=== PATIENT | female | born 1945 | race Caucasian/White ===

== ENCOUNTER 2018-10-25 01:32 | Emergency (ER) | payer OTHER ==
--- OUTSIDE RECORDS SUMMARY | 2018-10-25 01:35 | XMS REPORT ---
:1945 Author Organization eClinicalWorks Care Team Providers Name Role Phone SalWade Provider Role Unavailable Allergies No Known Allergies Problems Problem Type Condition Code Onset Dates Condition Status Problem Pain, joint, knee, right M25.561 Active Problem Pain in right lower leg M79.661 Active Problem Pain, joint, knee, left M25.562 Active Problem Pain in left lower leg M79.662 Active Problem Right sided sciatica M54.31 Active Medications Medication Code System Code Instructions Start End Date Status Dosage Date Valium [facility] 17919476787 2 MG Orally Once Apr 02, Active 1 PO 30 a day 2018 MINUTES MAY TAKE 2 IF NEEDED Results No Known Results Summary Purpose eClinicalWorks Submission
--- OUTSIDE RECORDS SUMMARY | 2018-10-25 01:35 | XMS REPORT ---
:1945 Author Organization eClinicalWorks Care Team Providers Name Role Phone Wade Sal Provider Role Unavailable Allergies, Adverse Reactions, Alerts Substance Reaction Event Type N.K.D.A. Info Not Available Non Drug Allergy Problems Problem Type Condition Code Onset Dates Condition Status Assessment Pain, joint, knee, right M25.561 Active Assessment Pain in right lower leg M79.661 Active Assessment Right sided sciatica M54.31 Active Assessment Pain, joint, knee, left M25.562 Active Problem Pain, joint, knee, right M25.561 Active Problem Pain in right lower leg M79.661 Active Problem Pain, joint, knee, left M25.562 Active Assessment Pain in left lower leg M79.662 Active Problem Pain in left lower leg M79.662 Active Problem Right sided sciatica M54.31 Active Medications Medication Code System Code Instructions Start Date End Date Status Dosage Amlodipine NDC 0 Active not defined Besylate Lisinopril-Hydr NDC 35115-319 Active not defined ochlorothiazide 2-01 Results No Known Results Summary Purpose eClinicalWorks Submission
--- OUTSIDE RECORDS SUMMARY | 2018-10-25 01:35 | XMS REPORT ---
:1945 [facility] Address [address] [place] [address] Dr. Gallardo [address] [place] [id number] Care Team Providers Name Role Phone Unavailable Unavailable Unavailable Problems This patient has no known problems. Allergies, Adverse Reactions, Alerts This patient has no known allergies or adverse reactions. Medications This patient has no known medications.
--- OUTSIDE RECORDS SUMMARY | 2018-10-25 01:35 | XMS REPORT ---
[...] sided sciatica M54.31 Active Medications Medication Code Code Instructions Start End Date Status Dosage System Date Tramadol HCl [facility] 92858830565 50 MG Orally April 15, April 25, Active 1 tablet every 6 hrs PRN 2018 2018 as needed pain Results No Known Results Summary Purpose eClinicalWorks Submission
--- OUTSIDE RECORDS SUMMARY | 2018-10-25 01:35 | XMS REPORT ---
:1945 Author Organization eClinicalWorks Care Team Providers Name Role Phone Wade Sal Provider Role Unavailable Allergies No Known Allergies Problems Problem Type Condition Code Onset Dates Condition Status Problem Pain, joint, knee, right M25.561 Active Problem Pain in right lower leg M79.661 Active Problem Pain, joint, knee, left M25.562 Active Problem Pain in left lower leg M79.662 Active Problem Right sided sciatica M54.31 Active Medications No Known Medications Results No Known Results Summary Purpose eClinicalWorks Submission
--- OUTSIDE RECORDS SUMMARY | 2018-10-25 01:35 | XMS REPORT ---
:1945 Author Organization eClinicalWorks Care Team Providers Name Role Phone SalJustin grajedauel Provider Role Unavailable Allergies No Known Allergies Problems Problem Type Condition Code Onset Dates Condition Status Problem Pain, joint, knee, right M25.561 Active Problem Pain in right lower leg M79.661 Active Problem Pain, joint, knee, left M25.562 Active Problem Pain in left lower leg M79.662 Active Problem Right sided sciatica M54.31 Active Medications Medication Code Code Instructions Start End Status Dosage System Date Date Valium NDC 63604776761 2 MG Orally Apr 02, Active 1 PO 30 Once a day 2018 MINUTES MAY TAKE 2 IF NEEDED Valium NDC 05524740373 2 MG Once a Apr 02, Active 1 tablet day 2018 prior to MRI. may take second one if needed Amlodipine NDC 0 Active not Besylate defined Lisinopril-Hyd NDC [address]-87 Active not rochlorothiazi defined de Results No Known Results Summary Purpose eClinicalWorks Submission
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
[2018-10-25 05:17] VITALS: TEMP 99.1
[2018-10-25 05:20] VITALS: BP 142/85; O2SAT 99
--- NOTE | 2018-10-26 12:06 | RAD REPORT ---
EXAM DESCRIPTION: Head Brain Wo Cont CLINICAL HISTORY: Headache;Trauma COMPARISON: CT head May 04, 2015 TECHNIQUE: Multiple helical axial tomographic images were obtained of the head without intravenous c ontrast. This exam was performed according to our departmental dose-optimization program, which inclu amanda automated exposure control, adjustment of the mA and/or kV according to patient size and/or use o f iterative reconstruction technique. FINDINGS: Generalized brain volume loss is demonstrated. There is mild low-attenuation in the perive ntricular white matter suggestive of chronic microvascular ischemic changes. There is no acute intrac ranial hemorrhage. No mass. No midline shift. No ventriculomegaly. Alvarado-white matter differentiation is maintained. Paranasal sinuses are clear. Mastoid air cells and middle ear spaces are clear. Orbits and orbital co ntents are unremarkable. Osseous structures are unremarkable. Surrounding soft tissues are unremarkable. IMPRESSION: No acute intracranial process. Electronically signed by: Saurabh Hansen MD 10/25/2018 3:55 AM CDT Due to temporary technical issues with the PACS/Fluency reporting system, reports are being signed by the in house radiologist as a courtesy to ensure prompt reporting. The interpreting radiologist is f ully responsible for the content of the report.
== END 2018-10-25 04:43 | disposition home or self-care (01) ==
LOC: ER 01:32
DX: R51 Headache (principal); H10.9 Unspecified conjunctivitis; Y04.2XXA Assault by strike against or bumped into by another person, initial encounter; Y93.89 Activity, other specified; Y92.89 Other specified places as the place of occurrence of the external cause; Y99.0 Civilian activity done for income or pay
CPT/HCPCS: 70450; 99283